=== PATIENT | male | born 1990 | race African-American/Black ===

== ENCOUNTER 2021-05-28 07:51 | Emergency (ER) | payer SELFPAY ==
[~2021-05-28] VITALS: Ht 170.2 cm; Wt 66.0 kg
[2021-05-28 08:07] VITALS: BP 118/75
[2021-05-28] MEDS ORDERED: PREDNISONE 20MG TABLET PO ONE (08:30)
[2021-05-28] MEDS ORDERED: DIPHENHYDRAMINE 25MG CAPSULE PO ONE (08:30)
[2021-05-28] MEDS ORDERED: FAMOTIDINE 20MG TABLET PO ONE (08:30)
[2021-05-28] MEDS ORDERED: P50 MT (09:25)
== END 2021-05-28 10:04 | disposition home or self-care (01) ==
LOC: ER 07:51
DX: T78.1XXA Other adverse food reactions, not elsewhere classified, initial encounter (principal); X58.XXXA Exposure to other specified factors, initial encounter; R22.0 Localized swelling, mass and lump, head; Y93.89 Activity, other specified; Y92.89 Other specified places as the place of occurrence of the external cause
CPT/HCPCS: 99284; J7512; Q0163